=== PATIENT | female | born 1985 | race Two or more races ===

== ENCOUNTER 2018-07-09 11:39 | Emergency (ER) | payer MEDICAID | END 2018-07-09 14:04 | disposition left against medical advice (07) | LOC: ER 11:39 | DX: Z32.00 Encounter for pregnancy test, result unknown (principal); Z53.21 Procedure and treatment not carried out due to patient leaving prior to being seen by health care provider ==

== ENCOUNTER 2019-12-21 06:34 | Emergency (ER) | payer MEDICAID, OTHER ==
[~2019-12-21] VITALS: Ht 157.5 cm; Wt 59.0 kg
[2019-12-21 07:16] LABS: CLARITY URINE CLEAR (CLEAR); COLOR URINE YELLOW (YELLOW); KETONES URINE NEGATIVE (NEGATIVE); LEUKOCYTE ESTERASE URINE NEGATIVE (NEGATIVE); NITRITE URINE NEGATIVE (NEGATIVE); OCCULT BLOOD URINE NEGATIVE (NEGATIVE); PROTEIN URINE NEGATIVE (NEGATIVE); SPECIFIC GRAVITY URINE 1.019 (1.005-1.030)
[2019-12-21 08:29] LABS: BASOPHILS % 0.8 % (0.0-2.0); EOSINOPHILS % 9.4 % (0.0-5.0); HEMATOCRIT. 38.1 % (36.0-48.0); HEMOGLOBIN. 13.3 g/dL (12.0-16.0); LYMPHOCYTES % 23.2 % (20.0-50.0); MEAN CORPUSCULAR HEMOGLOBIN 31.3 pg (28.0-32.0); MEAN CORPUSCULAR VOLUME 89.6 fL (81.0-99.0); MEAN PLATELET VOLUME 9.5 fl (7.4-10.4); MONOCYTES % 7.7 % (2.0-8.0); NEUTROPHILS % 58.9 % (40.0-76.0); PLATELET 185 x1000/uL (130-400); RED BLOOD CELL COUNT 4.25 mill/uL (4.2-5.4); RED CELL DISTRIBUTION WIDTH 12.8 % (11.6-14.6)
[2019-12-21 08:36] LABS: CHLORIDE 111 mEq/L (98-107)
[2019-12-21 09:01] LABS: B-HCG QUANTITATIVE 19662 mIU/mL (<3)
[2019-12-21 09:27] VITALS: BP 100/64
[2019-12-21 10:58] LABS: HEPATITIS B SURFACE ANTIGEN NEGATIVE
== END 2019-12-21 09:27 | disposition home or self-care (01) ==
LOC: ER 06:34
DX: O20.0 Threatened abortion (principal); Z3A.01 Less than 8 weeks gestation of pregnancy; Z98.890 Other specified postprocedural states
CPT/HCPCS: 36415; 76801; 80053; 81003; 81025; 84702; 85025; 86850; 86900; 99284

== ENCOUNTER 2019-12-27 18:25 | Emergency (ER) | payer OTHER ==
[~2019-12-27] VITALS: Ht 157.5 cm; Wt 59.0 kg
[2019-12-27 22:01] LABS: BASOPHILS % 0.7 % (0.0-2.0); EOSINOPHILS % 6.8 % (0.0-5.0); HEMATOCRIT. 37.4 % (36.0-48.0); HEMOGLOBIN. 12.9 g/dL (12.0-16.0); LYMPHOCYTES % 23.7 % (20.0-50.0); MEAN CORPUSCULAR HEMOGLOBIN 30.9 pg (28.0-32.0); MEAN CORPUSCULAR VOLUME 89.9 fL (81.0-99.0); MEAN PLATELET VOLUME 9.6 fl (7.4-10.4); MONOCYTES % 8.2 % (2.0-8.0); NEUTROPHILS % 60.6 % (40.0-76.0); PLATELET 201 x1000/uL (130-400); RED BLOOD CELL COUNT 4.16 mill/uL (4.2-5.4); RED CELL DISTRIBUTION WIDTH 12.9 % (11.6-14.6)
[2019-12-27 22:04] LABS: CHLORIDE 109 mEq/L (98-107)
[2019-12-27 22:27] LABS: B-HCG QUANTITATIVE 61306 mIU/mL (<3)
[2019-12-28 00:33] VITALS: BP 109/61
== END 2019-12-28 00:35 | disposition home or self-care (01) ==
LOC: ER 18:25
DX: O20.0 Threatened abortion (principal); Z3A.01 Less than 8 weeks gestation of pregnancy
CPT/HCPCS: 36415; 76801; 80048; 84702; 85025; 99284

== ENCOUNTER 2020-02-12 13:48 | Emergency (ER) | payer OTHER ==
[~2020-02-12] VITALS: Ht 157.5 cm; Wt 58.0 kg
[2020-02-12 15:20] LABS: BASOPHILS % 0.5 % (0.0-2.0); EOSINOPHILS % 5.2 % (0.0-5.0); HEMATOCRIT. 39.1 % (36.0-48.0); HEMOGLOBIN. 13.9 g/dL (12.0-16.0); LYMPHOCYTES % 18.3 % (20.0-50.0); MEAN CORPUSCULAR HEMOGLOBIN 31.6 pg (28.0-32.0); MEAN CORPUSCULAR VOLUME 89.1 fL (81.0-99.0); MEAN PLATELET VOLUME 9.6 fl (7.4-10.4); MONOCYTES % 5.2 % (2.0-8.0); NEUTROPHILS % 70.8 % (40.0-76.0); PLATELET 195 x1000/uL (130-400); RED BLOOD CELL COUNT 4.39 mill/uL (4.2-5.4); RED CELL DISTRIBUTION WIDTH 12.8 % (11.6-14.6)
[2020-02-12 15:29] LABS: CHLORIDE 106 mEq/L (98-107)
[2020-02-12 15:33] LABS: CLARITY URINE CLEAR (CLEAR); COLOR URINE YELLOW (YELLOW); KETONES URINE NEGATIVE (NEGATIVE); LEUKOCYTE ESTERASE URINE NEGATIVE (NEGATIVE); NITRITE URINE NEGATIVE (NEGATIVE); OCCULT BLOOD URINE 3+ (NEGATIVE); PROTEIN URINE NEGATIVE (NEGATIVE); SPECIFIC GRAVITY URINE 1.017 (1.005-1.030); UROBILINOGEN URINE 0.2 E.U./dL (0.2-1.0)
[2020-02-12 16:51] VITALS: BP 120/65
== END 2020-02-12 16:54 | disposition home or self-care (01) ==
LOC: ER 13:48
DX: O46.91 Antepartum hemorrhage, unspecified, first trimester (principal); O26.891 Other specified pregnancy related conditions, first trimester; Z98.890 Other specified postprocedural states; Z3A.13 13 weeks gestation of pregnancy
CPT/HCPCS: 36415; 76801; 80053; 81003; 81025; 85025; 86850; 86900; 99284

== ENCOUNTER 2020-08-12 09:49 | Inpatient (IN) | payer OTHER ==
[~2020-08-12] VITALS: Ht 157.5 cm; Wt 71.7 kg
[2020-08-12] MEDS ORDERED: DEXT 5%/LR + PITOCIN 20UNITS/L 1,000 ML IV SCH (10:59)
[2020-08-12] MEDS ORDERED: LACTATED RINGERS 1,000 ML IV SCH (10:59)
[2020-08-12] MEDS ORDERED: LIDOCAINE HCL 1% 20ML VIAL (Pyxis) INJ INFIL SCH (11:00)
[2020-08-12] MEDS ORDERED: NALOXONE HCL 0.4 MG/ML 1ML VIAL IM PRN (11:00)
[2020-08-12] MEDS ORDERED: BUTORPHANOL TARTRATE 2 MG/ML VIAL IV PRN (11:00)
[2020-08-12] MEDS ORDERED: METHYLERGONOVINE MALEATE 0.2 MG/ML IM PRN (11:00)
[2020-08-12] MEDS ORDERED: CARBOPROST TROMETHAMINE 250 MCG/ML AMPUL IM PRN (11:00)
[2020-08-12] MEDS: DEXT 5%/LACTATED RINGERS 1,000 ML IV SCH ×2 (12:17→16:22)
[2020-08-12 12:18] LABS: CLARITY URINE CLEAR (CLEAR); COLOR URINE YELLOW (YELLOW); KETONES URINE NEGATIVE (NEGATIVE); LEUKOCYTE ESTERASE URINE 1+ (NEGATIVE); NITRITE URINE NEGATIVE (NEGATIVE); OCCULT BLOOD URINE NEGATIVE (NEGATIVE); PROTEIN URINE NEGATIVE (NEGATIVE); SPECIFIC GRAVITY URINE 1.019 (1.005-1.030); UROBILINOGEN URINE 0.2 E.U./dL (0.2-1.0)
[2020-08-12 12:23] LABS: PARTIAL THROMBOPLASTIN TIME 25.7 sec (23.4-31.0); PROTHROMBIN TIME 10.3 sec (9.6-11.0)
[2020-08-12 12:33] LABS: BASOPHILS % 0.7 % (0.0-2.0); EOSINOPHILS % 2.3 % (0.0-5.0); HEMATOCRIT. 36.8 % (36.0-48.0); HEMOGLOBIN. 12.7 g/dL (12.0-16.0); LYMPHOCYTES % 18.2 % (20.0-50.0); MEAN CORPUSCULAR HEMOGLOBIN 30.9 pg (28.0-32.0); MEAN CORPUSCULAR VOLUME 89.3 fL (81.0-99.0); MEAN PLATELET VOLUME 10.1 fl (7.4-10.4); MONOCYTES % 8.1 % (2.0-8.0); NEUTROPHILS % 70.7 % (40.0-76.0); PLATELET 186 x1000/uL (130-400); RED BLOOD CELL COUNT 4.12 mill/uL (4.2-5.4); RED CELL DISTRIBUTION WIDTH 13.2 % (11.6-14.6)
[2020-08-12 12:55] LABS: *AMPHETAMINES SCREEN URINE NEGATIVE (NEGATIVE); *BARBITURATES SCREEN URINE NEGATIVE (NEGATIVE); *BENZODIAZEPINES SCREEN URINE NEGATIVE (NEGATIVE); *COCAINE SCREEN URINE NEGATIVE (NEGATIVE)
[2020-08-12 12:56] LABS: CANNABINOID URINE SCREEN NEGATIVE (NEGATIVE); METHADONE URINE SCREEN NEGATIVE (NEGATIVE); OPIATES URINE SCREEN NEGATIVE (NEGATIVE); PHENCYCLIDINE URINE SCREEN NEGATIVE (NEGATIVE)
[2020-08-12 12:59] LABS: HEPATITIS B SURFACE ANTIGEN NEGATIVE
[2020-08-12 20:50] VITALS: BP 117/54
[2020-08-12 21:20] VITALS: BP 128/69
[2020-08-12] MEDS ORDERED: HYDROCODONE/ACETAMINOPHEN 5/325MG TABLET PO PRN (21:30)
[2020-08-12] MEDS ORDERED: IBUPROFEN 800MG TABLET PO PRN (21:30)
[2020-08-12] MEDS: IBUPROFEN 800MG TABLET PO PRN (21:39)
[2020-08-12] MEDS ORDERED: IBUPROFEN 400MG TABLET PO PRN (23:00)
[2020-08-13] VITALS: BP 124/58
[2020-08-13] MEDS ORDERED: BENZOCAINE/LANOLIN/ALOE VERA SPRAY TOP PRN (03:15)
[2020-08-13] MEDS ORDERED: GLYCERIN/WITCH HAZEL LEAF MEDICATED PAD TOP PRN (03:15)
[2020-08-13 04:00] VITALS: BP 113/52
[2020-08-13 07:31] LABS: BASOPHILS % 0.3 % (0.0-2.0); EOSINOPHILS % 2.1 % (0.0-5.0); HEMATOCRIT. 35.9 % (36.0-48.0); HEMOGLOBIN. 12.1 g/dL (12.0-16.0); LYMPHOCYTES % 12.9 % (20.0-50.0); MEAN CORPUSCULAR HEMOGLOBIN 30.4 pg (28.0-32.0); MEAN CORPUSCULAR VOLUME 89.8 fL (81.0-99.0); MEAN PLATELET VOLUME 10.1 fl (7.4-10.4); MONOCYTES % 6.8 % (2.0-8.0); NEUTROPHILS % 77.9 % (40.0-76.0); PLATELET 176 x1000/uL (130-400); RED CELL DISTRIBUTION WIDTH 13.3 % (11.6-14.6)
[2020-08-13 08:00] VITALS: BP 99/51
[2020-08-13] MEDS: IBUPROFEN 800MG TABLET PO PRN (08:59)
[2020-08-13 16:41] VITALS: BP 108/55
[2020-08-13 19:30] VITALS: BP 114/64
[2020-08-14 04:00] VITALS: BP 115/65
[2020-08-14 08:00] VITALS: BP 107/54
== END 2020-08-14 12:20 | disposition home or self-care (01) | DRG 560 ==
LOC: 8 EST LDRP 09:49 → OBSVTOIN 09:49 → 8 EST LDRP 10:19 → 8EST 21:09
PROVIDERS: ADMIT Obstetrics & Gynecology; ATTEND Obstetrics & Gynecology
PROC: 10E0XZZ Delivery of Products of Conception, External Approach (ICD-10-PCS; principal; 2020-08-12)
PROC: 3E033VJ Introduction of Other Hormone into Peripheral Vein, Percutaneous Approach (ICD-10-PCS; 2020-08-12)
PROC: 0KQM0ZZ Repair Perineum Muscle, Open Approach (ICD-10-PCS; 2020-08-12)
DX: O70.1 Second degree perineal laceration during delivery (principal); Z37.0 Single live birth; Z3A.39 39 weeks gestation of pregnancy
CPT/HCPCS: 36415; 80305; 81003; 85025; 86592; 86703; 86762; 86850; 86900; 87340; J0595; J2590; J3490; J7120; J7121

== ENCOUNTER 2021-03-07 09:12 | Emergency (ER) | payer OTHER ==
[~2021-03-07] VITALS: Ht 157.5 cm; Wt 74.0 kg
[2021-03-07] MEDS ORDERED: ACETAMINOPHEN 325MG TABLET PO STA (10:01)
[2021-03-07] MEDS ORDERED: VANCOMYCIN 1 G PREMIX 200 ML IV ONE (10:15)
[2021-03-07] MEDS ORDERED: CEFTRIAXONE 1 G PREMIX 50 ML IV ONE (10:15)
[2021-03-07 10:25] LABS: BASOPHILS % 0.4 % (0.0-2.0); HEMATOCRIT. 41.3 % (36.0-48.0); HEMOGLOBIN. 14.3 g/dL (12.0-16.0); LYMPHOCYTES % 17.2 % (20.0-50.0); MEAN CORPUSCULAR HEMOGLOBIN 30.3 pg (28.0-32.0); MEAN CORPUSCULAR VOLUME 87.7 fL (81.0-99.0); MEAN PLATELET VOLUME 8.9 fl (7.4-10.4); MONOCYTES % 10.2 % (2.0-8.0); NEUTROPHILS % 69.2 % (40.0-76.0); PLATELET 198 x1000/uL (130-400); RED BLOOD CELL COUNT 4.71 mill/uL (4.2-5.4); RED CELL DISTRIBUTION WIDTH 12.2 % (11.6-14.6)
[2021-03-07 10:33] LABS: CHLORIDE 108 mEq/L (98-107)
[2021-03-07 10:48] VITALS: BP 121/77
[2021-03-07] MEDS ORDERED: SULF1TAB48 MT (10:55)
[2021-03-07] MEDS ORDERED: ACET-2708 MT (10:55)
[2021-03-07] MEDS ORDERED: CEPH500C2 MT (10:55)
== END 2021-03-07 14:01 | disposition home or self-care (01) ==
LOC: ER 09:12
DX: L03.116 Cellulitis of left lower limb (principal)
CPT/HCPCS: 36415; 73562; 80053; 83605; 85025; 87040; 87070; 87077; 87186; 87205; 96365; 96367; 99284; J0696; J3370

== ENCOUNTER 2021-03-09 22:23 | Emergency (ER) | payer OTHER ==
[~2021-03-09] VITALS: Ht 157.5 cm; Wt 74.0 kg
[~2021-03-09 22:23] MED LIST: ACET-2708 MT; CEPH500C2 MT; SULF1TAB48 MT
[2021-03-10] MEDS ORDERED: PIPERACILLIN/TAZ 3.375G PREMIX 50 ML IV ONE (01:00)
[2021-03-10] MEDS ORDERED: CLINDAMYCIN 600 MG in DEXTROSE 5% WATER 50 ML IV ONE (01:00)
[2021-03-10] MEDS ORDERED: SODIUM CHLORIDE 0.9% 1,000 ML IV ONE (01:00)
[2021-03-10] MEDS ORDERED: VANCOMYCIN 1 G PREMIX 200 ML IV ONE (01:00)
[2021-03-10 01:14] LABS: BASOPHILS % 0.9 % (0.0-2.0); EOSINOPHILS % 9.4 % (0.0-5.0); HEMATOCRIT. 36.9 % (36.0-48.0); HEMOGLOBIN. 12.8 g/dL (12.0-16.0); MEAN CORPUSCULAR HEMOGLOBIN 29.8 pg (28.0-32.0); MEAN CORPUSCULAR VOLUME 86.2 fL (81.0-99.0); MEAN PLATELET VOLUME 9.2 fl (7.4-10.4); NEUTROPHILS % 52.7 % (40.0-76.0); PLATELET 246 x1000/uL (130-400); RED BLOOD CELL COUNT 4.29 mill/uL (4.2-5.4); RED CELL DISTRIBUTION WIDTH 11.9 % (11.6-14.6)
[2021-03-10] MEDS ORDERED: CLINDAMYCIN 600MG PREMIX 50 ML IV NR (01:15)
[2021-03-10 01:24] LABS: CHLORIDE 107 mEq/L (98-107)
[2021-03-10 07:37] VITALS: BP 129/84
== END 2021-03-10 07:39 | disposition short-term general hospital (02) ==
LOC: ER 22:23
DX: L03.116 Cellulitis of left lower limb (principal); Z79.899 Other long term (current) drug therapy; Z20.822 Contact with and (suspected) exposure to COVID-19
CPT/HCPCS: 36415; 73560; 73590; 73700; 80053; 83605; 84145; 85025; 87040; 87426; 93005; 96365; 96367; 99285; J2543; J3370; J3490; J7030; J7060

== ENCOUNTER 2021-07-12 18:31 | Emergency (ER) | payer OTHER ==
[~2021-07-12] VITALS: Ht 157.5 cm; Wt 72.0 kg
[2021-07-12] MEDS ORDERED: ACETAMINOPHEN 325MG TABLET PO STA (22:57)
[2021-07-12 23:29] LABS: CHLORIDE 109 mEq/L (98-107)
[2021-07-12 23:30] LABS: BASOPHILS % 0.7 % (0.0-2.0); EOSINOPHILS % 4.2 % (0.0-5.0); HEMATOCRIT. 40.8 % (36.0-48.0); HEMOGLOBIN. 14.1 g/dL (12.0-16.0); LYMPHOCYTES % 25.4 % (20.0-50.0); MEAN CORPUSCULAR HEMOGLOBIN 30.4 pg (28.0-32.0); MEAN CORPUSCULAR VOLUME 88.1 fL (81.0-99.0); MEAN PLATELET VOLUME 9.2 fl (7.4-10.4); MONOCYTES % 5.9 % (2.0-8.0); NEUTROPHILS % 63.8 % (40.0-76.0); PLATELET 210 x1000/uL (130-400); RED BLOOD CELL COUNT 4.63 mill/uL (4.2-5.4); RED CELL DISTRIBUTION WIDTH 13.2 % (11.6-14.6)
[2021-07-12 23:59] LABS: B-HCG QUANTITATIVE 5958 mIU/mL (<3)
[2021-07-13] MEDS ORDERED: HYDROMORPHONE HCL/PF 2MG/ML CPJ IV PRN (01:45)
[2021-07-13] MEDS ORDERED: ONDANSETRON HCL 4MG/2ML INJ IV PRN (01:45)
[2021-07-13 02:00] VITALS: BP 117/68
[2021-07-13] MEDS ORDERED: PROPOFOL 200MG/20ML VIAL IV ONE (02:08)
[2021-07-13] MEDS ORDERED: DEXAMETHASONE 4MG/ML 1ML VIAL ONE (02:08)
[2021-07-13] MEDS ORDERED: FENTANYL CITRATE/PF 50MCG/ML 2ML VIAL ONE (02:08)
[2021-07-13] MEDS ORDERED: ROCURONIUM BROMIDE 10MG/ML VIAL 5ML IV ONE (02:08)
[2021-07-13] MEDS ORDERED: MIDAZOLAM HCL 2 MG/2 ML VIAL ONE (02:08)
[2021-07-13] MEDS ORDERED: LIDOCAINE HCL/PF 1% 10 MG/ML 5ML VIAL ONE (02:08)
[2021-07-13] MEDS ORDERED: SUCCINYLCHOLINE CHLORIDE 200MG/10ML IV ONE (02:08)
[2021-07-13] MEDS ORDERED: ONDANSETRON HCL 4MG/2ML INJ ONE (02:08)
== END 2021-07-13 02:23 | disposition left against medical advice (07) ==
LOC: ER 18:37
DX: O00.102 Left tubal pregnancy without intrauterine pregnancy (principal); K59.00 Constipation, unspecified; N83.201 Unspecified ovarian cyst, right side; R94.31 Abnormal electrocardiogram [ECG] [EKG]
CPT/HCPCS: 36415; 76801; 76817; 80053; 84702; 85025; 86850; 86900; 86901; 93005; 99285; J0330; J1100; J2250; J2405; J2704; J3010; J3490

== ENCOUNTER 2021-07-13 10:48 | Inpatient (IN) | payer OTHER ==
[~2021-07-13] VITALS: Ht 157.5 cm; Wt 70.8 kg
[2021-07-13] MEDS ORDERED: SODIUM CHLORIDE 0.9% 1,000 ML IV ONE (11:15)
[2021-07-13] MEDS ORDERED: ACETAMINOPHEN 325MG TABLET PO ONE (11:15)
[2021-07-13 11:40] LABS: BASOPHILS % 0.6 % (0.0-2.0); EOSINOPHILS % 6.4 % (0.0-5.0); HEMATOCRIT. 41.3 % (36.0-48.0); HEMOGLOBIN. 14.4 g/dL (12.0-16.0); LYMPHOCYTES % 29.9 % (20.0-50.0); MEAN CORPUSCULAR HEMOGLOBIN 30.2 pg (28.0-32.0); MEAN CORPUSCULAR VOLUME 86.9 fL (81.0-99.0); MEAN PLATELET VOLUME 9.4 fl (7.4-10.4); MONOCYTES % 7.8 % (2.0-8.0); NEUTROPHILS % 55.3 % (40.0-76.0); PLATELET 200 x1000/uL (130-400); RED BLOOD CELL COUNT 4.75 mill/uL (4.2-5.4); RED CELL DISTRIBUTION WIDTH 13.1 % (11.6-14.6)
[2021-07-13 11:46] LABS: CHLORIDE 111 mEq/L (98-107)
[2021-07-13 12:19] LABS: B-HCG QUANTITATIVE 5537 mIU/mL (<3)
[2021-07-13 16:00] VITALS: BP 119/77
[2021-07-13 17:37] VITALS: BP 107/68
[2021-07-13 18:45] VITALS: BP 107/68
[2021-07-13] MEDS ORDERED: METHOTREXATE SODIUM/PF 50 MG/2 ML VIAL IM SCH (19:00)
[2021-07-13 20:00] VITALS: BP 100/56
== END 2021-07-13 23:20 | disposition home or self-care (01) | DRG 566 ==
LOC: ER 11:02 → MICUSO 15:31 → 6EST 15:58
PROVIDERS: ADMIT Obstetrics & Gynecology; ATTEND Obstetrics & Gynecology
DX: O00.102 Left tubal pregnancy without intrauterine pregnancy (principal); K59.00 Constipation, unspecified; O99.619 Diseases of the digestive system complicating pregnancy, unspecified trimester; Z53.20 Procedure and treatment not carried out because of patient's decision for unspecified reasons; Z79.1 Long term (current) use of non-steroidal anti-inflammatories (NSAID); Z79.2 Long term (current) use of antibiotics; Z79.899 Other long term (current) drug therapy; Z82.49 Family history of ischemic heart disease and other diseases of the circulatory system
CPT/HCPCS: 36415; 80053; 84702; 85025; 86850; 86900; 99285; J7030; J9260

== ENCOUNTER 2021-07-17 13:21 | Emergency (ER) | payer OTHER ==
[~2021-07-17] VITALS: Ht 167.6 cm; Wt 75.0 kg
[2021-07-17 13:34] VITALS: BP 115/70
[2021-07-17] MEDS ORDERED: SODIUM CHLORIDE 0.9% 1,000 ML IV ONE (14:15)
[2021-07-17] MEDS ORDERED: PROCHLORPERAZINE 10MG/2ML VIAL IV ONE (14:15)
[2021-07-17 14:39] LABS: BASOPHILS % 0.8 % (0.0-2.0); EOSINOPHILS % 7.3 % (0.0-5.0); HEMATOCRIT. 37.9 % (36.0-48.0); HEMOGLOBIN. 13.2 g/dL (12.0-16.0); LYMPHOCYTES % 25.1 % (20.0-50.0); MEAN CORPUSCULAR HEMOGLOBIN 30.5 pg (28.0-32.0); MEAN CORPUSCULAR VOLUME 87.5 fL (81.0-99.0); MEAN PLATELET VOLUME 9.4 fl (7.4-10.4); MONOCYTES % 7.2 % (2.0-8.0); NEUTROPHILS % 59.6 % (40.0-76.0); PLATELET 204 x1000/uL (130-400); RED BLOOD CELL COUNT 4.34 mill/uL (4.2-5.4); RED CELL DISTRIBUTION WIDTH 12.9 % (11.6-14.6)
[2021-07-17 14:45] LABS: CHLORIDE 111 mEq/L (98-107)
[2021-07-17 15:08] LABS: B-HCG QUANTITATIVE 4874 mIU/mL (<3)
== END 2021-07-17 16:27 | disposition home or self-care (01) ==
LOC: ER 13:21
DX: R51.9 Headache, unspecified (principal)
CPT/HCPCS: 36415; 76801; 76817; 80053; 81025; 84484; 84702; 85025; 93005; 96361; 96374; 99285; J0780; J7030; Z7610

== ENCOUNTER 2022-07-28 11:50 | Emergency (ER) | payer MEDICAID, OTHER ==
[~2022-07-28] VITALS: Ht 162.6 cm; Wt 62.0 kg
[2022-07-28] MEDS ORDERED: ONDANSETRON HCL 4MG/2ML INJ IV STA (13:10)
[2022-07-28] MEDS ORDERED: SODIUM CHLORIDE 0.9% 1,000 ML IV ONE (13:15)
[2022-07-28] MEDS ORDERED: FAMOTIDINE 20MG/2ML VIAL IV ONE (13:15)
[2022-07-28 13:52] LABS: BASOPHILS % 0.5 % (0.0-2.0); EOSINOPHILS % 8.6 % (0.0-5.0); HEMATOCRIT. 39.9 % (36.0-48.0); HEMOGLOBIN. 13.9 g/dL (12.0-16.0); LYMPHOCYTES % 24.7 % (20.0-50.0); MEAN CORPUSCULAR HEMOGLOBIN 30.4 pg (28.0-32.0); MEAN CORPUSCULAR VOLUME 87.2 fL (81.0-99.0); MEAN PLATELET VOLUME 10.1 fl (7.4-10.4); MONOCYTES % 4.6 % (2.0-8.0); NEUTROPHILS % 61.6 % (40.0-76.0); PLATELET 210 x1000/uL (130-400); RED BLOOD CELL COUNT 4.57 mill/uL (4.2-5.4); RED CELL DISTRIBUTION WIDTH 12.9 % (11.6-14.6)
[2022-07-28 13:58] LABS: CHLORIDE 105 mEq/L (98-107)
[2022-07-28] MEDS ORDERED: METOCLOPRAMIDE HCL 10MG/2ML VIAL IV SCH (14:00)
[2022-07-28 14:04] LABS: CLARITY URINE CLEAR (CLEAR); COLOR URINE DARK YELLOW (YELLOW); KETONES URINE TRACE (NEGATIVE); LEUKOCYTE ESTERASE URINE TRACE (NEGATIVE); NITRITE URINE NEGATIVE (NEGATIVE); OCCULT BLOOD URINE NEGATIVE (NEGATIVE); PROTEIN URINE TRACE (NEGATIVE); SPECIFIC GRAVITY URINE 1.026 (1.005-1.030)
[2022-07-28] MEDS ORDERED: DOXY1TAB3 MT (15:12)
[2022-07-28] MEDS ORDERED: NITR-87 MT (15:13)
[2022-07-28 17:30] VITALS: BP 106/67
== END 2022-07-28 17:43 | disposition home or self-care (01) ==
LOC: ER 11:50
DX: O21.0 Mild hyperemesis gravidarum (principal); O26.891 Other specified pregnancy related conditions, first trimester; R82.71 Bacteriuria; O34.81 Maternal care for other abnormalities of pelvic organs, first trimester; N83.291 Other ovarian cyst, right side; O09.521 Supervision of elderly multigravida, first trimester; O09.11 Supervision of pregnancy with history of ectopic pregnancy, first trimester; Z3A.12 12 weeks gestation of pregnancy
CPT/HCPCS: 36415; 76801; 76817; 80053; 81003; 81025; 83690; 84702; 85025; 93005; 96361; 96374; 96375; 99285; J2405; J3490; J7030

== ENCOUNTER 2022-10-16 10:56 | Observation (INO) | payer MEDICAID ==
[~2022-10-16] VITALS: Ht 157.5 cm; Wt 64.9 kg
[~2022-10-16 10:56] MED LIST changes: +DOXY1TAB3 MT; +NITR-87 MT
[2022-10-16] MEDS ORDERED: PNV1TABL76 MT (12:48)
== END 2022-10-16 13:50 | disposition home or self-care (01) ==
LOC: 8 EST LDRP 10:56 → 8 EST A/PP 11:03
PROVIDERS: ADMIT Obstetrics & Gynecology; ATTEND Obstetrics & Gynecology
DX: O36.8120 Decreased fetal movements, second trimester, not applicable or unspecified (principal); Z3A.23 23 weeks gestation of pregnancy
CPT/HCPCS: 59025; 76805; 99281; G0378; G0379

== ENCOUNTER 2024-12-26 20:41 | Emergency (ER) | payer MEDICAID ==
[~2024-12-26] VITALS: Ht 162.6 cm; Wt 70.0 kg
[~2024-12-26 20:41] MED LIST changes: -ACET-2708 MT; -CEPH500C2 MT; -DOXY1TAB3 MT; -NITR-87 MT; +PNV1TABL76 MT; -SULF1TAB48 MT
[2024-12-26 21:03] VITALS: BP 144/87; PULSE 83; RESP 16; TEMP 36.7; O2SAT 100
[2024-12-26] MEDS ORDERED: BENZ100C86 MT (21:46)
== END 2024-12-26 23:44 | disposition home or self-care (01) ==
LOC: ER 20:41
DX: J06.9 Acute upper respiratory infection, unspecified (principal); B97.89 Other viral agents as the cause of diseases classified elsewhere; R05.9 Cough, unspecified
CPT/HCPCS: 71045; 99283